=== PATIENT | female | born 1975 | race Caucasian/White ===

== ENCOUNTER 2022-06-21 15:28 | Emergency (ER) | payer OTHER, BC, SELFPAY ==
[2022-06-21 15:44] VITALS: BP 117/89; PULSE 86; RESP 16; TEMP 36; O2SAT 99; BMI 39.2
--- NOTE | 2022-06-21 15:57 | ED.LOWEXIN ---
HPI - Extremity Injury (Lower) General Time Seen by Provider: 15:57 Date Seen: 06/21/22 Chief Complaint: Extremity Pain/Injury, Lower Stated Complaint: Foot Injury Time Seen by Provider: 06/21/22 15:57 Source: patient, RN notes reviewed and translator/interpreter Mode of arrival: ambulatory Limitations: no limitations History of Present Illness HPI Narrative: Patient is a 46-year-old female seen with the aid of the translator/interpreter with complaint of right foot pain, specifically along the 5th toe, base of the foot along the toe. She this morning slid will getting out of the car and believes her foot struck the tire. She was wearing tennis shoes. She is not exactly sure what happened. It has become more painful. She tried some topical gel over the area. It hurts to walk. Nothing else was injured. Related Data Home Medications Medication Instructions Recorded Confirmed No Known Home Medications 06/21/22 06/21/22 Allergies Allergy/AdvReac Type Severity Reaction Status Date / Time No Known Drug Allergies Allergy Verified 06/21/22 15:40 Review of Systems Narrative: As per HPI Exam Const: Vital Signs, click to edit/add: Vital Signs - 24 hr 06/21/22 15:44 Temperature 96.8 F L Pulse Rate [Left P ulse Oximeter] 86 Respiratory Rate 16 Blood Pressure [Le ft Upper Arm] 117/89 Pulse Oximetry 99 Oxygen Delivery Me thod Room Air Patient's right foot is inspected, neurovascular is intact. There is bruising along the base of the left 5th toe, is tender there. Alignment of the toe looks to be normal. She is not palpably tender more proximally along the 5th metatarsal. Documenting provider has reviewed patient's vital signs: yes Course Course Hospital Course: Will obtain an x-ray of her right foot to see if there is any underlying fracture. Have reviewed if there is no fracture, this is soft tissue injury and will discuss further. Reevaluation(s) Reevaluation #1: Reviewed with patient via the translator/interpreter that she did have a fractured phalanx, nondisplaced. We went over management. She did state that this was a work comp at this time. 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 We will put her in a postop shoe. Will write her out of work the rest of the week so she can ice and elevate. I think she will have difficulty trying to be up on this foot cleaning, this is open toed as well and she will be having to go in an out of houses and the car. I have requested that she follow up in 7-10 days on her discharge but she may need to get in earlier just to have ongoing management yet of this injury for work comp purposes. She does understand this. Have reviewed the complication of subsequent displacement of fracture of the toe. She understands if her toe is starting to rotate, it will need to be re-x-rayed. Did review with her that this was not common but does need to be watched for. They were wondering why the total would not be casted, reviewed with them that toes usually heal up without any complication, just need to be observant of wearing firm comfortable supportive shoes. Time: 17:22 Vital Signs Vital signs: Initial Vital Signs Temperature 96.8 F L 06/21/22 15:44 Temperature Source Temporal Artery Scan 06/21/22 15:44 Pulse Rate 86 06/21/22 15:44 Pulse Rhythm 06/21/22 15:44 Pulse Strength 3+ Normal 06/21/22 15:44 Respiratory Rate 16 06/21/22 15:44 Blood Pressure 117/89 06/21/22 15:44 Blood Pressure Mean 98 06/21/22 15:44 Blood Pressure Position Sitting 06/21/22 15:44 Pulse Oximetry 99 06/21/22 15:44 Oxygen Delivery Method 06/21/22 15:44 Vital Signs Temperature 96.8 F L 06/21/22 15:44 Pulse Rate 86 06/21/22 15:44 Respiratory Rate 16 06/21/22 15:44 Blood Pressure 117/89 06/21/22 15:44 Pulse Oximetry 99 06/21/22 15:44 Oxygen Delivery Method 06/21/22 15:44 Temperature 96.8 F L 06/21/22 15:44 Pulse Rate 86 06/21/22 15:44 Respiratory Rate 16 06/21/22 15:44 Blood Pressure 117/89 06/21/22 15:44 Pulse Oximetry 99 06/21/22 15:44 Oxygen Delivery Method 06/21/22 15:44 MDM - Extremity Injury (Lower) Imaging Data X-ray right foot: Attestation: I have reviewed the pertinent imaging results. My impression: See lucent line without any displacement at the base of the proximal phalanx. Will await Radiology over-read, question fracture. Radiologist's impression: Patient: WENDY AGGARWAL Facility:?[facility] Patient ID:?[id number] Site Patient ID:?[id number]. Site :?[id number] Study:?XRay Extremity Right FOOT 3 VIEWS-06/21/2022 4:21:04 PM Ordering Physician:Rodolfo Schmid Final Report: Indication: Pain Comparison: None available. Technique: AP, lateral, and oblique views right foot were obtained. Findings: There is likely a nondisplaced fracture through the base of the proximal 5th phalanx. There are hammertoe deformities of the 2nd through 5th digits. There is moderate soft tissue swelling. Impression: Nondisplaced lucency through the base of the proximal 5th phalanx likely representing fracture with associated soft tissue swelling. Dictated by Jorge Sanz MD @ 06/21/2022 4:49:37 PM (Electronic Signature) Critical Care Time Critical Care Time Critical Care Time: No Discharge Plan Discharge Clinical Impression: Fracture of toe of right foot Patient Disposition: Home, Self-Care Condition: Stable Instructions: Toe Fracture (ED) Additional Instructions: Follow-up in clinic with primary care provider or Orthopedics in 7-10 days. Ice, elevate this foot over the next week to help decrease pain and swelling. Can use Tylenol and ibuprofen per bottle directions as needed for pain control. Use the orthopedic shoe as needed for pain free ambulation. You may resume normal shoe wear once you can comfortably get the shoe on and walk in the shoe. Activity Level: Activity as Tolerated Prescriptions: No Action No Known Home Medications Follow Up/Referrals: Cassandra Davenport RD [Primary Care Provider] - Stand Alone Forms: [employer] Info Instructions
--- NOTE | 2022-06-21 16:01 | CRLHL7_ITS ---
For Patients: As a result of the Cures Act, medical imaging exams and procedure reports are released immediately into your electronic medical record. You may view this report before your referring provider. If you have questions, please contact your health care provider. Indication: Pain Comparison: None available. Technique: AP, lateral, and oblique views right foot were obtained. Findings: There is likely a nondisplaced fracture through the base of the proximal 5th phalanx. There are hammertoe deformities of the 2nd through 5th digits. There is moderate soft tissue swelling. Impression: Nondisplaced lucency through the base of the proximal 5th phalanx likely representing fracture with associated soft tissue swelling. Dictated by Jorge Sanz MD @ 06/21/2022 4:49:37 PM (Electronically Signed)
== END 2022-06-21 17:33 | disposition home or self-care (01) ==
PROVIDERS: Emergency Provider Family Medicine; PCP Dietitian, Registered
DX: S92.511A Displaced fracture of proximal phalanx of right lesser toe(s), initial encounter for closed fracture (principal); W01.10XA Fall on same level from slipping, tripping and stumbling with subsequent striking against unspecified object, initial encounter
CPT/HCPCS: 73630; 99283